=== PATIENT | male | born 1945 | race Caucasian/White ===

== ENCOUNTER 2017-03-27 07:54 | Emergency (ER) | payer MEDICAID, OTHER, SELFPAY ==
[~2017-03-27] VITALS: Ht 172.7 cm; Wt 60.0 kg
[2017-03-27 07:58] VITALS: BP 112/82
== END 2017-03-27 08:38 | disposition left against medical advice (07) ==
LOC: ED 08:15
DX: Z53.21 Procedure and treatment not carried out due to patient leaving prior to being seen by health care provider (principal)